=== PATIENT | female | born 1975 | race Caucasian/White ===

== ENCOUNTER → 2019-03-20 | Outpatient (CLI) | payer OTHER ==
[~2019-03-20] MED LIST: METHACHOLINE KIT (J7674) INH ONE
--- NOTE | 2019-03-20 14:15 | PFTRPT ---
Site: [facility], [address] [place], [address] ID: [id number] Name: ABHIJEET LAUREANO Visit Date: 03/20/2019 Second ID: [id number] Referring Doctor: Fahad Blanca MD Reviewing Doctor: Fahad Blanca MD Baker Doughnut: Shruti RIVERS, ISABELLE Age: 44 : 1975 Sex: Female Race: Height: 61.00 Inches Weight: 254.00 Lbs BSA: 2.09 Order IDs: [id number] Requested Test(s): <RESP-PFT.METH CHAL> Diagnosis: R05 of albuterol for postbronchodilator. Review Status: Not Reviewed Pre-Bronch Post-Bronch Pred Actual %Pred Actual %Chng SPIROMETRY FVC (L) 3.30 2.98 90 2.87 -3 FEV1 (L) 2.68 2.48 92 2.36 -4 FEV1/FVC (%) 82 83 101 82 FEF 25% (L/sec) 5.07 6.35 125 6.15 -3 FEF 50% (L/sec) 4.12 3.23 78 2.90 -10 FEF 75% (L/sec) 1.60 1.05 65 0.77 -26 FEF 25-75% (L/sec) 2.85 2.58 90 2.14 -17 FEF Max (L/sec) 6.47 6.95 107 6.43 -7 FIVC (L) 2.88 2.73 -5 FIF 50% (L/sec) 4.16 2.72 65 3.25 19 FIF Max (L/sec) 3.02 3.41 12 Expiratory Time (sec) 6.57 6.42 -2 Back Extrap Vol (L) 0.08 0.10 22 Time To FEFmax (sec) 0.067 0.085 26
== END ==
LOC: M CARPUL 13:28
PROVIDERS: ATTEND Internal Medicine Pulmonary Disease
DX: R05 Cough (principal)
CPT/HCPCS: 94070; J7674

== ENCOUNTER → 2024-11-24 | Outpatient (RCR) | LOC: M EMPSKH 11-07 14:58 | PROVIDERS: ATTEND Family Medicine | DX: Z20.828 Contact with and (suspected) exposure to other viral communicable diseases (principal) ==